=== PATIENT | female | born 1985 | race Caucasian/White ===

== ENCOUNTER 2022-11-02 20:26 | Emergency (ER) | payer MEDICAID ==
[~2022-11-02] VITALS: Ht 175.3 cm; Wt 77.1 kg
[2022-11-02] MEDS ORDERED: NAPR-1009 PO (22:51)
[2022-11-02] MEDS ORDERED: CYCL5TAB PO (22:51)
[2022-11-02] MEDS ORDERED: IBUPROFEN 800 MG TABLET ONE (22:58)
[2022-11-02] MEDS ORDERED: IBUPROFEN 800 MG TABLET PO ONE (23:00)
[2022-11-03 00:02] VITALS: BP 121/70; TEMP 98.2; O2SAT 98
== END 2022-11-02 23:20 | disposition home or self-care (01) ==
LOC: ER 20:28
DX: S06.0X0A Concussion without loss of consciousness, initial encounter (principal); M54.2 Cervicalgia; M25.512 Pain in left shoulder; Z79.899 Other long term (current) drug therapy; V43.52XA Car driver injured in collision with other type car in traffic accident, initial encounter; Y93.89 Activity, other specified; Y92.410 Unspecified street and highway as the place of occurrence of the external cause; Y99.8 Other external cause status
CPT/HCPCS: A4663